=== PATIENT | female | born 1945 | race Hispanic/Latino ===

== ENCOUNTER 2017-05-11 13:59 | Outpatient (CLI) | payer MEDICARE, OTHER ==
--- NOTE | 2017-05-11 16:42 | XRay Report ---
XRAY LEFT KNEE 3 VIEWS: 05/11/17 13:59:00 CLINICAL: Pain. FINDINGS: No fracture or dislocation. Severe osteoarthritis involving the medial joint space. There is complete loss of joint space with large osteophytes. Eburnation of the lateral tibial plateau and a few small geodes of the medial femoral condyle. The lateral joint space is normal. Moderate patellofemoral joint arthritis with osteophytes. A quadriceps insertion enthesophyte. No joint effusion. The soft tissues are normal. 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
== END 2017-05-11 14:00 | disposition home or self-care (01) ==
LOC: SPVIMAG 13:59
PROVIDERS: ATTEND Physical Medicine & Rehabilitation
DX: M17.12 Unilateral primary osteoarthritis, left knee (principal); M53.3 Sacrococcygeal disorders, not elsewhere classified